=== PATIENT | female | born 1940 | race American Indian/Alaskan Native ===

== ENCOUNTER 2022-08-20 05:43 | Emergency (ER) | payer OTHER ==
[~2022-08-20] VITALS: Ht 147.3 cm; Wt 40.7 kg
[~2022-08-20 05:43] MED LIST: ALPH200T PO; ASPI-1497 PO; BIOT5000 PO; CALC-1139 PO; CHOL200059 PO; ESTR1TAB21 PO; LEVO25TA7 PO; MELO-106 PO; METH1TAB33 PO; MIRA25TA PO; OMEG100036 PO; PRAV40TA58 PO; [UNRECOGNIZED DRUG - CODE] PO
[2022-08-20] MEDS ORDERED: ASPIRIN 325MG EC TABLET PO ONE (06:30)
[2022-08-20 06:33] LABS: BASOPHILS % 1.3 % (0.0-2.0); EOSINOPHILS % 2.9 % (0.0-5.0); HEMATOCRIT. 33.7 % (36.0-48.0); HEMOGLOBIN. 11.2 g/dL (12.0-16.0); LYMPHOCYTES % 36.9 % (20.0-50.0); MEAN CORPUSCULAR HEMOGLOBIN 32.5 pg (28.0-32.0); MEAN CORPUSCULAR VOLUME 97.5 fL (81.0-99.0); MEAN PLATELET VOLUME 7.9 fl (7.4-10.4); MONOCYTES % 10.5 % (2.0-8.0); NEUTROPHILS % 48.4 % (40.0-76.0); PLATELET 175 x1000/uL (130-400); RED BLOOD CELL COUNT 3.46 mill/uL (4.2-5.4); RED CELL DISTRIBUTION WIDTH 13.7 % (11.6-14.6)
[2022-08-20] MEDS ORDERED: IOHEXOL-350 100 ML BOTTLE ONE (06:45)
[2022-08-20 06:48] LABS: CHLORIDE 104 mEq/L (98-107)
[2022-08-20 06:59] LABS: ETHANOL BLOOD < 10 mg/dL
[2022-08-20 08:32] LABS: CLARITY URINE CLEAR (CLEAR); COLOR URINE YELLOW (YELLOW); KETONES URINE NEGATIVE (NEGATIVE); LEUKOCYTE ESTERASE URINE NEGATIVE (NEGATIVE); NITRITE URINE NEGATIVE (NEGATIVE); OCCULT BLOOD URINE NEGATIVE (NEGATIVE); PROTEIN URINE NEGATIVE (NEGATIVE); UROBILINOGEN URINE 0.2 E.U./dL (0.2-1.0)
[2022-08-20 08:45] LABS: *AMPHETAMINES SCREEN URINE NEGATIVE (NEGATIVE); *BARBITURATES SCREEN URINE NEGATIVE (NEGATIVE); *BENZODIAZEPINES SCREEN URINE NEGATIVE (NEGATIVE); *COCAINE SCREEN URINE NEGATIVE (NEGATIVE); CANNABINOID URINE SCREEN NEGATIVE (NEGATIVE); METHADONE URINE SCREEN NEGATIVE (NEGATIVE); OPIATES URINE SCREEN NEGATIVE (NEGATIVE); PHENCYCLIDINE URINE SCREEN NEGATIVE (NEGATIVE)
[2022-08-20] MEDS ORDERED: MAGNESIUM/ALUMINUM HYDROXIDE/SIMETHICONE 30ML UDC PO STA (11:08)
[2022-08-20] MEDS ORDERED: VISCOUS LIDOCAINE 2% 15 ML UDC PO STA (11:08)
[2022-08-20] MEDS ORDERED: DICYCLOMINE 10 MG/5 ML ORAL SYR PO STA (11:08)
[2022-08-20] MEDS ORDERED: ONDANSETRON 4MG ODT PO STA (11:08)
[2022-08-20 12:18] VITALS: BP 126/74
== END 2022-08-20 12:25 | disposition short-term general hospital (02) ==
LOC: ER 05:43 → CANBEDREQ 12:26
DX: G45.9 Transient cerebral ischemic attack, unspecified (principal); Z20.822 Contact with and (suspected) exposure to COVID-19; Z86.73 Personal history of transient ischemic attack (TIA), and cerebral infarction without residual deficits; Z88.0 Allergy status to penicillin; Z88.5 Allergy status to narcotic agent
CPT/HCPCS: 36415; 70450; 70496; 70498; 71045; 80053; 80305; 80320; 81003; 85025; 87426; 93005; 99291; C9803; Q0162; Q9967; G0480

== ENCOUNTER 2022-08-24 04:40 | Emergency (ER) | payer OTHER ==
[~2022-08-24] VITALS: Ht 157.5 cm; Wt 41.0 kg
[2022-08-24 04:45] VITALS: BP 144/79
== END 2022-08-24 10:02 | disposition home or self-care (01) ==
LOC: ER 04:54
DX: M79.661 Pain in right lower leg (principal); E78.00 Pure hypercholesterolemia, unspecified; Z85.6 Personal history of leukemia; E03.9 Hypothyroidism, unspecified; H40.9 Unspecified glaucoma
CPT/HCPCS: 99283

== ENCOUNTER 2023-05-08 10:44 | Emergency (ER) | payer OTHER ==
[~2023-05-08] VITALS: Ht 149.9 cm; Wt 39.0 kg
[2023-05-08 10:45] VITALS: O2SAT 99
[2023-05-08] MEDS ORDERED: SODIUM CHLORIDE 0.9% 1,000 ML IV ONE (11:00)
[2023-05-08] MEDS ORDERED: METOCLOPRAMIDE HCL 10MG/2ML VIAL IV ONE (11:00)
[2023-05-08 12:14] LABS: BASOPHILS % 0.7 % (0.0-2.0); EOSINOPHILS % 1.1 % (0.0-5.0); HEMATOCRIT. 32.4 % (36.0-48.0); HEMOGLOBIN. 10.9 g/dL (12.0-16.0); LYMPHOCYTES % 13.5 % (20.0-50.0); MEAN CORPUSCULAR HEMOGLOBIN 32.8 pg (28.0-32.0); MEAN CORPUSCULAR VOLUME 97.4 fL (81.0-99.0); MEAN PLATELET VOLUME 8.1 fl (7.4-10.4); MONOCYTES % 9.5 % (2.0-8.0); NEUTROPHILS % 75.2 % (40.0-76.0); PLATELET 157 x1000/uL (130-400); RED BLOOD CELL COUNT 3.32 mill/uL (4.2-5.4); RED CELL DISTRIBUTION WIDTH 14.2 % (11.6-14.6)
[2023-05-08 12:55] LABS: CHLORIDE 104 mEq/L (98-107)
[2023-05-08 13:15] VITALS: BP 120/80; PULSE 63; RESP 18; TEMP 98.2
[2023-05-08 13:17] LABS: CLARITY URINE CLEAR (CLEAR); COLOR URINE YELLOW (YELLOW); KETONES URINE NEGATIVE (NEGATIVE); LEUKOCYTE ESTERASE URINE NEGATIVE (NEGATIVE); NITRITE URINE NEGATIVE (NEGATIVE); OCCULT BLOOD URINE NEGATIVE (NEGATIVE); PROTEIN URINE NEGATIVE (NEGATIVE); SPECIFIC GRAVITY URINE 1.004 (1.005-1.030); UROBILINOGEN URINE 0.2 E.U./dL (0.2-1.0)
== END 2023-05-08 15:07 | disposition home or self-care (01) ==
LOC: ER 10:44
DX: S00.03XA Contusion of scalp, initial encounter (principal); S09.90XA Unspecified injury of head, initial encounter; E78.00 Pure hypercholesterolemia, unspecified; Z88.1 Allergy status to other antibiotic agents; Z88.5 Allergy status to narcotic agent; Z79.899 Other long term (current) drug therapy; Z86.39 Personal history of other endocrine, nutritional and metabolic disease; W18.30XA Fall on same level, unspecified, initial encounter; Y93.89 Activity, other specified; Y92.89 Other specified places as the place of occurrence of the external cause; Y99.8 Other external cause status
CPT/HCPCS: 99285; 70450; 96374; 71045; 96361; 80053; 81003; 85025; 84484; 36415; 72125; J2765; J7030

== ENCOUNTER 2025-01-28 01:06 | Emergency (ER) | payer MEDICARE, OTHER ==
[~2025-01-28] VITALS: Ht 162.6 cm; Wt 50.0 kg
[2025-01-28 01:10] VITALS: O2SAT 98
[2025-01-28 01:51] LABS: BASOPHILS % 1.6 % (0.0-2.0); HEMATOCRIT. 35.6 % (36.0-48.0); HEMOGLOBIN. 11.7 g/dL (12.0-16.0); LYMPHOCYTES % 26.4 % (20.0-50.0); MEAN CORPUSCULAR HGB CONC 32.8 g/dL (31.0-37.0); MEAN CORPUSCULAR VOLUME 97.3 fL (81.0-99.0); MEAN PLATELET VOLUME 8.2 fl (7.4-10.4); MONOCYTES % 12.5 % (2.0-8.0); NEUTROPHILS % 57.5 % (40.0-76.0); PLATELET 207 x1000/uL (130-400); RED BLOOD CELL COUNT 3.65 mill/uL (4.2-5.4); RED CELL DISTRIBUTION WIDTH 13.7 % (11.6-14.6); WHITE BLOOD COUNT 3.7 x1000/uL (4.5-11.0)
[2025-01-28] MEDS: SODIUM CHLORIDE 0.9% 1,000 ML IV ONE (01:57)
[2025-01-28 02:00] LABS: CHLORIDE 101 mEq/L (98-107); POTASSIUM 3.6 mEq/L (3.5-5.1); SODIUM 138 mEq/L (136-145)
[2025-01-28 02:01] LABS: CARBON DIOXIDE 29 mEq/L (21-32)
[2025-01-28 02:06] LABS: CREATININE 0.7 mg/dL (0.6-1.0); GLUCOSE 88 mg/dL (70-105); UREA NITROGEN BLOOD 10 mg/dL (9-23)
[2025-01-28 02:07] LABS: TROPONIN I HIGH SENSITIVITY 10 ng/L (3.0-34)
[2025-01-28 04:19] LABS: CREATINE KINASE 125 IU/L (34-145)
[2025-01-28] MEDS ORDERED: ACETAMINOPHEN 325MG TABLET PO PRN ×2 (04:30)
[2025-01-28 05:00] LABS: TROPONIN I HIGH SENSITIVITY 15 ng/L (3.0-34)
[2025-01-28 05:38] LABS: CLARITY URINE CLOUDY (CLEAR); COLOR URINE YELLOW (YELLOW); GLUCOSE URINE NEGATIVE (NEGATIVE); KETONES URINE NEGATIVE (NEGATIVE); LEUKOCYTE ESTERASE URINE NEGATIVE (NEGATIVE); NITRITE URINE NEGATIVE (NEGATIVE); OCCULT BLOOD URINE NEGATIVE (NEGATIVE); PH URINE 7.5 (4.5-8.0); PROTEIN URINE NEGATIVE (NEGATIVE); SPECIFIC GRAVITY URINE 1.005 (1.005-1.030); UROBILINOGEN URINE 0.2 E.U./dL (0.2-1.0)
[2025-01-28 05:48] LABS: *AMPHETAMINES SCREEN URINE NEGATIVE (NEGATIVE); *BARBITURATES SCREEN URINE NEGATIVE (NEGATIVE); *BENZODIAZEPINES SCREEN URINE NEGATIVE (NEGATIVE); *COCAINE SCREEN URINE NEGATIVE (NEGATIVE)
[2025-01-28 05:49] LABS: CANNABINOID URINE SCREEN NEGATIVE (NEGATIVE); ECSTASY MDMA SCREEN URINE NEGATIVE (NEGATIVE); METHADONE URINE SCREEN NEGATIVE (NEGATIVE); OPIATES URINE SCREEN NEGATIVE (NEGATIVE); PHENCYCLIDINE URINE SCREEN NEGATIVE (NEGATIVE)
[2025-01-28 06:39] LABS: FOLIC ACID (FOLATE) SERUM > 20.00 ng/mL (>5.38); VITAMIN B12 SERUM 527 pg/mL (211-911)
[2025-01-28 06:43] LABS: THYROID STIMULATING HORMONE 1.51 uIU/mL (0.55-4.78)
[2025-01-28 06:44] LABS: T4 FREE 1.15 ng/dL (0.89-1.76)
[2025-01-28 07:29] LABS: BACTERIA URINE NONE SEEN; RBC URINE 0-2 /hpf (0-2); SQUAMOUS EPITHELIAL CELL URINE 1+ /lpf (RARE/1+); WBC URINE NONE SEEN /hpf (0-2)
[2025-01-28 07:31] LABS: AMMONIA < 17 uMol/L (<32)
[2025-01-28 08:13] VITALS: BP 118/47; PULSE 69; RESP 15; TEMP 36.3; O2SAT 98
[2025-01-28] MEDS ORDERED: ENOXAPARIN 30MG/0.3ML SYR SUBCUT SCH (09:00)
== END 2025-01-28 08:24 | disposition short-term general hospital (02) ==
LOC: ER 01:06
DX: R41.82 Altered mental status, unspecified (principal); R53.1 Weakness; Z86.73 Personal history of transient ischemic attack (TIA), and cerebral infarction without residual deficits; Z79.899 Other long term (current) drug therapy; Z79.890 Hormone replacement therapy; Z90.710 Acquired absence of both cervix and uterus; Z79.82 Long term (current) use of aspirin; E78.00 Pure hypercholesterolemia, unspecified; E03.9 Hypothyroidism, unspecified; Z88.5 Allergy status to narcotic agent; Z91.040 Latex allergy status; Z88.1 Allergy status to other antibiotic agents
CPT/HCPCS: 99285; 70450; 71045; 80305; 80048; 82140; 82550; 82607; 82746; 84439; 83605; 84443; 85025; 86850; 86900; 86901; 87040; 87086; 84484; 93005; 81003; 36415; J7030

== ENCOUNTER 2025-10-01 07:25 | Emergency (ER) | payer OTHER ==
[~2025-10-01] VITALS: Ht 157.5 cm; Wt 55.0 kg
[~2025-10-01 07:25] MED LIST changes: -METH1TAB33 PO; +METH1TAB69 PO; +UBID200C33 PO; -[UNRECOGNIZED DRUG - CODE] PO
[2025-10-01 07:29] VITALS: O2SAT 98
[2025-10-01 09:00] VITALS: BP 131/44; PULSE 75; RESP 16; TEMP 36.7; O2SAT 99
[2025-10-01 09:00] LABS: CREATININE 0.5 mg/dL (0.6-1.0); UREA NITROGEN BLOOD 8 mg/dL (9-23)
[2025-10-01 09:01] LABS: TROPONIN I HIGH SENSITIVITY 8 ng/L (3.0-34)
[2025-10-01 09:05] LABS: BASOPHILS % 1.2 % (0.0-2.0); EOSINOPHILS % 3.5 % (0.0-5.0); HEMATOCRIT. 34.9 % (36.0-48.0); HEMOGLOBIN. 11.4 g/dL (12.0-16.0); LYMPHOCYTES % 30.6 % (20.0-50.0); MEAN PLATELET VOLUME 7.9 fl (7.4-10.4); MONOCYTES % 12.0 % (2.0-8.0); NEUTROPHILS % 52.7 % (40.0-76.0); PLATELET 207 x1000/uL (130-400); RED BLOOD CELL COUNT 3.61 mill/uL (4.2-5.4); RED CELL DISTRIBUTION WIDTH 14.4 % (11.6-14.6)
== END 2025-10-01 09:30 | disposition home or self-care (01) ==
LOC: ER 07:37
DX: I10 Essential (primary) hypertension (principal); E78.00 Pure hypercholesterolemia, unspecified; I25.2 Old myocardial infarction; Z79.818 Long term (current) use of other agents affecting estrogen receptors and estrogen levels; Z79.82 Long term (current) use of aspirin; Z79.899 Other long term (current) drug therapy; Z86.73 Personal history of transient ischemic attack (TIA), and cerebral infarction without residual deficits; Z88.1 Allergy status to other antibiotic agents; Z88.5 Allergy status to narcotic agent; Z90.710 Acquired absence of both cervix and uterus; Z91.040 Latex allergy status
CPT/HCPCS: 36415; 71045; 80048; 84484; 85025; 93005; 99285; A4606

== ENCOUNTER 2025-10-19 07:05 | Emergency (ER) | payer OTHER ==
[~2025-10-19] VITALS: Ht 154.9 cm; Wt 50.0 kg
[2025-10-19 07:19] VITALS: O2SAT 98
[2025-10-19] MEDS: PIPERACILLIN/TAZO 3.375G/50ML 50 ML IV ONE (08:12)
[2025-10-19] MEDS: SODIUM CHLORIDE 0.9% (SEPSIS BOLUS) IV ONE (08:12)
[2025-10-19] MEDS: VANCOMYCIN 1G PREMIX 200 ML IV ONE (08:19)
[2025-10-19 08:22] LABS: BASOPHILS % 1.3 % (0.0-2.0); EOSINOPHILS % 2.7 % (0.0-5.0); HEMATOCRIT. 35.4 % (36.0-48.0); HEMOGLOBIN. 11.8 g/dL (12.0-16.0); LYMPHOCYTES % 27.3 % (20.0-50.0); MEAN PLATELET VOLUME 7.7 fl (7.4-10.4); MONOCYTES % 12.1 % (2.0-8.0); NEUTROPHILS % 56.6 % (40.0-76.0); PLATELET 198 x1000/uL (130-400); RED BLOOD CELL COUNT 3.66 mill/uL (4.2-5.4); RED CELL DISTRIBUTION WIDTH 13.5 % (11.6-14.6)
[2025-10-19 08:36] LABS: CREATININE 0.7 mg/dL (0.6-1.0)
[2025-10-19 08:37] LABS: PROTEIN TOTAL 6.6 g/dL (6.0-8.3); UREA NITROGEN BLOOD 10 mg/dL (9-23)
[2025-10-19 08:38] LABS: ASPARTATE AMINOTRANSFERASE 24 IU/L (<34)
[2025-10-19 08:39] LABS: BILIRUBIN DIRECT 0.2 mg/dL (<=3.0); BILIRUBIN TOTAL 1.0 mg/dL (0.1-1.0)
[2025-10-19 08:50] LABS: INR 0.9
[2025-10-19 09:04] LABS: CLARITY URINE CLEAR (CLEAR); COLOR URINE YELLOW (YELLOW); GLUCOSE URINE NEGATIVE (NEGATIVE); KETONES URINE NEGATIVE (NEGATIVE); LEUKOCYTE ESTERASE URINE NEGATIVE (NEGATIVE); NITRITE URINE NEGATIVE (NEGATIVE); OCCULT BLOOD URINE NEGATIVE (NEGATIVE); PH URINE 7.0 (4.5-8.0); PROTEIN URINE NEGATIVE (NEGATIVE); SPECIFIC GRAVITY URINE 1.004 (1.005-1.030); UROBILINOGEN URINE 0.2 E.U./dL (0.2-1.0)
[2025-10-19] MEDS ORDERED: DOCUSATE SODIUM 100MG CAPSULE PO PRN (10:30)
[2025-10-19] MEDS ORDERED: CLONIDINE 0.1MG TABLET PO PRN (10:30)
[2025-10-19] MEDS ORDERED: GUAIFENESIN 200MG/10ML SUGAR FREE UDC PO PRN (10:30)
[2025-10-19] MEDS ORDERED: ACETAMINOPHEN 325MG TABLET PO PRN ×2 (10:30)
[2025-10-19] MEDS ORDERED: SODIUM CHLORIDE 0.9% 1,000 ML IV SCH (10:30)
[2025-10-19] MEDS ORDERED: ONDANSETRON HCL 4MG/2ML INJ IV PRN (10:30)
[2025-10-19] MEDS ORDERED: IPRATROPIUM/ALBUTEROL 0.5-3(2.5)MG/3ML NEB HHN PRN (10:30)
[2025-10-19] MEDS ORDERED: LORAZEPAM 0.5MG TABLET PO PRN (10:30)
[2025-10-19 11:15] VITALS: BP 105/64; PULSE 63; RESP 18; TEMP 36.8; O2SAT 98
== END 2025-10-19 11:31 | disposition short-term general hospital (02) ==
LOC: ER 07:05 → EDBEDREQTM 09:45 → EDBEDREQ 09:45 → ER 11:31 → CMPBEDREQ 12:21
DX: R53.1 Weakness (principal); E78.00 Pure hypercholesterolemia, unspecified; E03.9 Hypothyroidism, unspecified; I10 Essential (primary) hypertension; H40.9 Unspecified glaucoma; Z79.899 Other long term (current) drug therapy; Z90.710 Acquired absence of both cervix and uterus; Z91.040 Latex allergy status; Z86.73 Personal history of transient ischemic attack (TIA), and cerebral infarction without residual deficits; Z88.1 Allergy status to other antibiotic agents; Z88.5 Allergy status to narcotic agent; Z90.12 Acquired absence of left breast and nipple
CPT/HCPCS: 99291; 96365; 96366; 80076; 80048; 81003; 83605; 85025; 85610; 87040; 87086; 36415; 84145; 71045; 93005; 96368; J2543; J3373; J7030